=== PATIENT | male | born 1985 | race Caucasian/White ===

== ENCOUNTER 2021-01-08 07:45 | Emergency (ER) | payer BC ==
[~2021-01-08] VITALS: Ht 182.9 cm; Wt 107.0 kg
[2021-01-08 09:43] LABS: HEMOGLOBIN 14.9 gm/dl (14.0-17.5); RED BLOOD COUNT 4.21 M/UL (4.20-5.50); WHITE BLOOD COUNT 4.7 K/UL (4.5-11.0)
[2021-01-08 10:08] LABS: BUN/CREATININE RATIO 9 (0-10)
== END 2021-01-08 11:16 | disposition home or self-care (01) ==
LOC: ER1 07:45
PROVIDERS: Physician Assistant
DX: Z23 Encounter for immunization (principal); U07.1 COVID-19
CPT/HCPCS: 71045; 80053; 85025; 99283; M0243

== ENCOUNTER 2021-06-01 08:18 | Emergency (ER) | payer BC ==
[2021-06-01 09:14] LABS: RED BLOOD COUNT 4.84 M/UL (4.20-5.50)
[2021-06-01 09:35] LABS: BUN/CREATININE RATIO 10 (0-10)
[2021-06-01] MEDS ORDERED: PROVENTIL HFA6.7 GM INH (09:53)
[2021-06-01] MEDS ORDERED: BENZONATATE100 MG PO (10:02)
== END 2021-06-01 10:30 | disposition home or self-care (01) ==
LOC: ER1 08:18
PROVIDERS: Emergency Medicine
DX: T54.3X1A Toxic effect of corrosive alkalis and alkali-like substances, accidental (unintentional), initial encounter (principal); J68.0 Bronchitis and pneumonitis due to chemicals, gases, fumes and vapors
CPT/HCPCS: 71046; 80053; 82550; 82553; 83874; 84484; 85025; 85379; 94664; 94760; 99285

== ENCOUNTER → 2021-06-04 | Outpatient (CLI) | payer BC ==
[~2021-06-04] MED LIST: BENZONATATE100 MG PO; PROVENTIL HFA6.7 GM INH
== END ==
LOC: KOH-I 12:30
DX: S27.309A Unspecified injury of lung, unspecified, initial encounter (principal)
CPT/HCPCS: 71046

== ENCOUNTER → 2021-06-05 | Outpatient (CLI) | payer BC | LOC: HEART 5 15:32 | DX: R06.02 Shortness of breath (principal) | CPT/HCPCS: 94060; 94729 ==

== ENCOUNTER → 2021-06-12 | Outpatient (CLI) | payer BC | LOC: KOH-I 14:24 | DX: Z77.098 Contact with and (suspected) exposure to other hazardous, chiefly nonmedicinal, chemicals (principal); R91.8 Other nonspecific abnormal finding of lung field | CPT/HCPCS: 71250 ==